=== PATIENT | male | born 1990 | race Hispanic/Latino ===

== ENCOUNTER 2017-08-23 14:39 | Emergency (ER) | payer OTHER ==
[2017-08-23 14:39] VITALS: BMI 22.8
[2017-08-23 15:02] VITALS: BP 142/98; PULSE 80; RESP 16; TEMP 98.4; O2SAT 99
--- NOTE | 2017-08-23 15:50 | ED PDOC ---
HPI: Eye Injury/Pain Time Seen by Provider: 08/23/17 15:07 Chief Complaint (Nursing): Eye Problem Chief Complaint (Provider): Left eye pain History Per: Patient Additional Complaint(s): Tim is a 27 y/o male who presents to the ED complaining of eye pain after feeling something fly into his left eye at around 3am last night. He has not had any discharge from eye and has not taken anything for the pain. Patient does wear contact lenses but did not have contact in when he noticed symptoms. He does not have contact in at this time. Patient denies any vision changes or vision loss. PMD: Tj Vick Past Medical History Reviewed: Historical Data, Nursing Documentation, Vital Signs Vital Signs: Last Vital Signs Temp 98.4 F 08/23/17 15:00 Pulse 80 08/23/17 15:00 Resp 16 08/23/17 15:00 BP 142/98 H 08/23/17 15:00 Pulse Ox 99 08/23/17 15:00 - Medical History PMH: No Chronic Diseases - Surgical History Surgical History: No Surg Hx - Family History Family History: States: No Known Family Hx - Living Arrangements Living Arrangements: With Friends/Others - Social History Current smoker - smoking cessation education provided: No Alcohol: Occasional Drugs: Denies - Immunization History Hx Tetanus Toxoid Vaccination: No Hx Influenza Vaccination: No Hx Pneumococcal Vaccination: No - Home Medications Home Medications: Ambulatory Orders Medication Instructions Recorded Naproxen 500 mg PO BID PRN #14 tab 07/24/15 Tobramycin [Tobrex] 5 ml TOP QID #1 bottle 08/23/17 - Allergies Allergies/Adverse Reactions: Allergies Allergy/AdvReac Type Severity Reaction Status Date / Time No Known Allergies Allergy Verified 07/24/15 14:14 Review of Systems ROS Statement: Except As Marked, All Systems Reviewed And Found Negative Constitutional: Negative for: Fever Eyes: Positive for: Other (FB sensation and pain to left eye). Negative for: Vision Change Neurological: Negative for: Headache, Dizziness Physical Exam - Reviewed Nursing Documentation Reviewed: Yes Vital Signs Reviewed: Yes - Physical Exam Appears: Positive for: Well, Non-toxic, No Acute Distress Head Exam: Positive for: ATRAUMATIC, NORMAL INSPECTION Skin: Positive for: Normal Color. Negative for: Rash Eye Exam: Positive for: EOMI, PERRL, Conjunctival injection (Mild conjunctival injection to left thigh with no gross foreign body, normal reactive pupil, no periorbital swelling or tenderness, right eye wnl). Negative for: Nystagmus ENT: Positive for: Normal ENT Inspection Cardiovascular/Chest: Positive for: Regular Rate, Rhythm Respiratory: Positive for: Normal Breath Sounds. Negative for: Respiratory Distress Neurologic/Psych: Positive for: Alert, Oriented. Negative for: Motor/Sensory Deficits - ECG O2 Sat by Pulse Oximetry: 99 (RA) Pulse Ox Interpretation: Normal Medical Decision Making Medical Decision Making: Time: 15:40 Initial Impression: 27 y/o male with left eye pain Procedure: 2 gtts tetracaine applied to left eye followed by staining with fluorescein strip, examination of the leg demonstrates a corneal abrasion at 9:00, small speck of debris was easily removed using cotton swab tip, procedure tolerated well by patient's, no complications. Prescription given for tobramycin eye drops. Advised NSAIDs for pain as needed. Patient was instructed to follow-up with eye doctor in 2-3 days and was advised not to resume use of contact lenses until area safety manager clears patient to resume use. Scribe Attestation: Documented by Alex Moreno, acting as a scribe for Lesly Rocha PA-C Provider Scribe Attestation: All medical record entries made by the Scribe were at my direction and personally dictated by me. I have reviewed the chart and agree that the record accurately reflects my personal performance of the history, physical exam, medical decision making, and the department course for this patient. I have also personally directed, reviewed, and agree with the discharge instructions and disposition. Disposition - Clinical Impression Clinical Impression: Corneal abrasion - Patient ED Disposition Is Patient to be Admitted: No Counseled Patient/Family Regarding: Diagnosis, Need For Followup - Disposition Referrals: Hieu Mcclelland MD [Staff Provider] - Disposition: Routine/Home Disposition Time: 16:24 Condition: STABLE Additional Instructions: Apply drops as directed. Tylenol or Advil for pain as needed. Follow-up with eye doctor in 2-3 days. Do not wear contact lenses until cleared by area safety manager to resume use. Prescriptions: Tobramycin [Tobrex] 5 ml TOP QID #1 bottle Instructions: Corneal Abrasion (DC) Forms: [employer] ([place]), [facility] ED School/Work Excuse
[2017-08-23] MEDS ORDERED: Fluorescein 1 mg Ophthalmic Strip ONE (16:10)
== END 2017-08-23 16:49 | disposition home or self-care (01) ==
LOC: H.ER 14:39
DX: S05.02XA Injury of conjunctiva and corneal abrasion without foreign body, left eye, initial encounter (principal); Y92.89 Other specified places as the place of occurrence of the external cause

== ENCOUNTER 2017-10-02 21:42 | Emergency (ER) | payer OTHER ==
[2017-10-02 21:43] VITALS: BMI 22.8
[2017-10-02 22:59] VITALS: BP 150/87; PULSE 84; RESP 18; TEMP 98.1; O2SAT 100
[2017-10-03 00:29] LABS: BASO # 0.1 K/uL (0.0-0.2); BASO % 0.8 % (0.0-2.0); EOS # 0.1 K/uL (0.0-0.7); EOS % 0.7 % (0.0-4.0); HEMOGLOBIN 15.6 g/dL (12.0-18.0); LYMPH # 1.9 K/uL (1.0-4.3); LYMPH % 20.5 % (20.0-40.0); MEAN CELL VOLUME 94.5 fl (80.0-94.0); MEAN CORPUSCULAR HEMOGLOBIN 31.9 pg (27.0-31.0); MEAN CORPUSCULAR HGB CONC 33.8 g/dL (33.0-37.0); MEAN PLATELET VOLUME 8.6 fl (7.2-11.7); MONO # 0.7 K/uL (0.0-0.8); MONO % 7.1 % (0.0-10.0); NEUT # 6.6 K/uL (1.8-7.0); NEUT % 70.9 % (50.0-75.0); NRBC % 0.1 % (0.0-0.0); RBC 4.88 Mil/uL (4.40-5.90); RED CELL DISTRIBUTION WIDTH 12.6 % (11.5-14.5); WHITE BLOOD COUNT 9.3 K/uL (4.8-10.8)
[2017-10-03 00:38] LABS: BLOOD UREA NITROGEN 17 mg/dl (9-20); CALCIUM 9.5 mg/dL (8.4-10.2); GFR AFRICAN-AMERICAN > 60; GFR NON-AFRICAN AMERICAN > 60
--- NOTE | 2017-10-03 01:11 | ED PDOC ---
HPI: Chest Pain Time Seen by Provider: 10/02/17 23:55 Chief Complaint (Nursing): Chest Pain Chief Complaint (Provider): Chest Pain History Per: Patient History/Exam Limitations: no limitations Onset/Duration Of Symptoms: Days (x 3) Current Symptoms Are (Timing): Still Present Additional Complaint(s): 27 year old [place] male with a history of "irregular heartbeat" present sot the ED complaining of intermittent, left sided chest discomfort that radiates to the left arm. States he is under a lot of stress with his creative wrtiing. 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 There was no physical exertion involved in the onset of symptoms. He had a similar episode 1 1/2 years ago and had a cardiac workup by PMD, Dr. Vick. Patient also saw a central scheduler and was medically cleared. Denies nausea, vomiting and diaphoresis. PMd: Dr. Tj Vick MD Past Medical History Reviewed: Historical Data, Nursing Documentation, Vital Signs Vital Signs: Last Vital Signs Temp 98.1 F 10/02/17 22:55 Pulse 84 10/02/17 22:55 Resp 18 10/02/17 22:55 BP 150/87 10/02/17 22:55 Pulse Ox 100 10/03/17 01:32 - Medical History PMH: Denies: Chronic Kidney Disease Other PMH: irregular heartbeat - Surgical History Surgical History: No Surg Hx - Family History Family History: States: Unknown Family Hx - Social History Current smoker - smoking cessation education provided: No Alcohol: Social Drugs: Denies - Immunization History Hx Tetanus Toxoid Vaccination: No Hx Influenza Vaccination: No Hx Pneumococcal Vaccination: No - Home Medications Home Medications: Ambulatory Orders Medication Instructions Recorded Naproxen 500 mg PO BID PRN #14 tab 07/24/15 Tobramycin [Tobrex] 5 ml TOP QID #1 bottle 08/23/17 - Allergies Allergies/Adverse Reactions: Allergies Allergy/AdvReac Type Severity Reaction Status Date / Time No Known Allergies Allergy Verified 07/24/15 14:14 Review of Systems ROS Statement: Except As Marked, All Systems Reviewed And Found Negative Cardiovascular: Positive for: Chest Pain Physical Exam - Reviewed Nursing Documentation Reviewed: Yes Vital Signs Reviewed: Yes - Physical Exam Appears: Positive for: Non-toxic, No Acute Distress Head Exam: Positive for: ATRAUMATIC, NORMOCEPHALIC Skin: Positive for: Normal Color, Warm, Dry Eye Exam: Positive for: EOMI, Normal appearance, PERRL Neck: Positive for: Normal, Painless ROM, Supple Cardiovascular/Chest: Positive for: Regular Rate, Rhythm. Negative for: Murmur Respiratory: Positive for: Normal Breath Sounds. Negative for: Respiratory Distress Gastrointestinal/Abdominal: Positive for: Normal Exam, Soft Back: Positive for: Normal Inspection. Negative for: L CVA Tenderness, R CVA Tenderness Extremity: Positive for: Normal ROM. Negative for: Deformity Neurologic/Psych: Positive for: Alert, Oriented. Negative for: Motor/Sensory Deficits - Laboratory Results Result Diagrams: 10/03/17 00:20 10/03/17 00:20 - ECG O2 Sat by Pulse Oximetry: 100 (RA) Pulse Ox Interpretation: Normal Medical Decision Making Medical Decision Making: Time: 00:05 Impression: 27 year old male with ches pain Initial Plan: --EKG --BMP --Troponin I --CBC with differentials Time: 01:31 --Labs were reviewed and revealed no clinically significant abnormalities. He is encouraged to follow up with Dr. Vick, his PMD. Scribe Attestation: Documented by Helen Green acting as a scribe for Farhan Chandler MD, MD Scribe Attestation: All medical record entries made by the Scribe were at my direction and personally dictated by me. I have reviewed the chart and agree that the record accurately reflects my personal performance of the history, physical exam, medical decision making, and the department course for this patient. I have also personally directed, reviewed, and agree with the discharge instructions and disposition. Disposition - Clinical Impression Clinical Impression: Atypical chest pain - Disposition Referrals: Tj Vick MD [Family Provider] - Disposition: Routine/Home Disposition Time: 01:00 Condition: STABLE Instructions: Chest Pain That Is Not Caused by the Heart (DC) Forms: [employer] ([place])
--- NOTE | 2017-10-03 09:20 | CARD ---
APPROVED REPORT EKG Measurement Heart [id number] <Conclusion> Normal sinus rhythm Normal ECG
== END 2017-10-03 01:45 | disposition home or self-care (01) ==
LOC: H.ER 21:42
DX: R07.89 Other chest pain (principal)